=== PATIENT | male | born 1980 | race Caucasian/White ===

== ENCOUNTER 2021-05-04 10:15 | Emergency (ER) | payer SELFPAY ==
[~2021-05-04] VITALS: Ht 182.9 cm; Wt 72.6 kg
[2021-05-04 10:15] VITALS: BP_SYST 144
--- NOTE | 2021-05-04 10:15 | NUR ---
Patient to ER bed 2 to gown for evaluation. Side rails up. Report given to Amarilys.
--- NOTE | 2021-05-04 10:17 | NUR ---
pt matt from the street after having a full tonic colonic seizure that was witnessed by people from [facility]. patient was postictal on arrival. now AAOx4 answering questions. small lac to right eyebrow. denies any pain at this time.
--- NOTE | 2021-05-04 10:20 | NUR ---
MD aquino at bedside for evaluation.
[2021-05-04 10:56] LABS: BASOPHILS # (AUTO) 0.1 K/uL (0.0-0.2); BASOPHILS % (AUTO) 0.7 % (0.0-2.0); EOSINOPHILS # (AUTO) 0.1 K/uL (0.0-0.4); EOSINOPHILS % (AUTO) 0.6 % (0.0-4.0); HEMATOCRIT 44.2 % (36-54); HEMOGLOBIN 14.9 g/dL (14.0-18.0); LYMPHOCYTES # (AUTO) 1.3 K/uL (1.0-5.5); LYMPHOCYTES % (AUTO) 10.2 % (20.5-51.5); MEAN CORPUSCULAR HEMOGLOBIN 32 pg (27-31); MEAN CORPUSCULAR HGB CONC 34 % (32-36); MEAN CORPUSCULAR VOLUME 95 fL (79.0-98.0); MONOCYTES # (AUTO) 1.1 K/uL (0.0-1.0); MONOCYTES % (AUTO) 8.5 % (1.7-9.3); NEUTROPHILS # (AUTO) 10.1 K/uL (1.8-7.7); PLATELET COUNT (AUTO) 333 K/uL (130-430); RED BLOOD CELL COUNT(AUTO) 4.65 MIL/uL (4.2-6.2); WHITE BLOOD COUNT (AUTO) 12.6 K/uL (4.8-10.8)
[2021-05-04 11:13] LABS: CALCIUM 9.2 mg/dL (8.4-11.0); CREATININE 1.17 mg/dL (0.55-1.30); POTASSIUM 3.1 mmol/L (3.5-5.1)
[2021-05-04 11:19] LABS: ALBUMIN 3.6 g/dL (3.4-4.8); TOTAL BILIRUBIN 0.8 mg/dL (0.0-1.0)
[2021-05-04 11:20] VITALS: BP_SYST 144
--- NOTE | 2021-05-04 11:30 | NUR ---
Patient does not wish to proceed with medical care recommended by dr. aquino. Patient given information related to possible complications, up to and including , which could occur as a result of leaving hospital at this time. Patient verbalizes understanding of risks involved leaving against medical advice. Patient has signed AMA form.
== END 2021-05-04 11:30 | disposition left against medical advice (07) ==
LOC: EDBD 10:15 → SED 10:15
DX: R56.9 Unspecified convulsions (principal); F10.10 Alcohol abuse, uncomplicated; Y90.9 Presence of alcohol in blood, level not specified
CPT/HCPCS: 36415; 80053; 85025; 99283